=== PATIENT | female | born 2000 | race Caucasian/White ===

== ENCOUNTER → 2024-07-16 | Outpatient (CLI) | payer OTHER | END | disposition home or self-care (01) | LOC: LABWHC1 10:44 | PROVIDERS: ATTEND Obstetrics & Gynecology | DX: N91.2 Amenorrhea, unspecified (principal) | CPT/HCPCS: 36415; 84702 ==

== ENCOUNTER → 2024-07-21 | Outpatient (CLI) | payer OTHER | END | disposition home or self-care (01) | LOC: LABWHC1 09:26 | PROVIDERS: ATTEND Obstetrics & Gynecology | DX: N91.2 Amenorrhea, unspecified (principal) | CPT/HCPCS: 36415; 84702 ==

== ENCOUNTER 2024-11-21 18:15 | Emergency (ER) | payer OTHER ==
[2024-11-21 18:21] VITALS: TEMP 98
--- NOTE | 2024-11-21 18:38 | ED ---
Dizziness HPI - General Chief Complaint: Dizziness Stated Complaint: 23 wk preg, lightheaded,dizzy Time Seen by Provider: 11/21/24 18:34 Source: patient, family (Significant other), RN notes reviewed Mode of arrival: ambulatory Limitations: no limitations - History of Present Illness Initial Comments: 24-year-old female presented to the ER for evaluation of lightheaded nests and dizziness. Patient is approximately 24 weeks gestation. She has not established SCREEN CUTTER AND TRIMMER care at this time. She has been experiencing lightheadedness while at work. She states this will typically last about an hour. She states she feels like she is going to pass out but denies any actual syncope. She denies any chest pain or shortness of breath during these episodes. No known triggers. Patient states today she has been having persistent lightheadedness and dizziness. She does report that this is worse with laying flat and positional changes. She reports mild shortness of breath but denies any chest pain or palpitations. Patient denies any recent fevers, chills, nausea, vomiting, cough, congestion, abdominal pain, urinary complaints, vaginal bleedin g or discharge or peripheral edema. Patient does reports she had ultrasound completed but it has been "a while". Patient reports normal movement. Patient has not taken anything for her complaints at this time. She does report a history of vertigo years ago. No other complaints. - Related Data Previous Rx's Medication Instructions Recorded Meclizine [Antivert] 12.5 mg PO BID #10 tablet 11/21/24 Ondansetron Odt [Zofran Odt] 4 mg PO Q8HR PRN #10 tab 11/21/24 Allergies Allergy/AdvReac Type Severity Reaction Status Date / Time No Known Allergies Allergy Verified 11/21/24 18:21 Review of Systems ROS Statement: Those systems with pertinent positive or pertinent negative responses have been documented in the HPI. ROS Other: All systems not noted in ROS Statement are negative. Past Medical History Past Medical History: No Reported History History of Any Multi-Drug Resistant Organisms: None Reported Past Surgical History: Appendectomy Past Psychological History: No Psychological Hx Reported Smoking Status: Never smoker Past Alcohol Use History: None Reported Past Drug Use History: None Reported General Exam Limitations: no limitations General appearance: alert, in no apparent distress Head exam: Present: atraumatic, normocephalic, normal inspection Eye exam: Present: normal appearance, PERRL, EOMI. Absent: scleral icterus, conjunctival injection, periorbital swelling ENT exam: Present: normal exam, normal oropharynx, mucous membranes moist, TM's normal bilaterally Respiratory exam: Present: normal lung sounds bilaterally. Absent: respiratory distress, wheezes, rales, rhonchi, stridor Cardiovascular Exam: Present: regular rate, normal rhythm, normal heart sounds. Absent: systolic murmur, diastolic murmur, rubs, gallop, clicks GI/Abdominal exam: Present: soft, normal bowel sounds, other (Gravid abdomen. F undus palpated above umbilicus). Absent: distended, tenderness, guarding, rebound, rigid Extremities exam: Present: normal inspection, full ROM, normal capillary refill. Absent: tenderness, pedal edema, joint swelling, calf tenderness Neurological exam: Present: alert, oriented X3, CN II-XII intact Skin exam: Present: warm, dry, intact, normal color. Absent: rash Course Vital Signs 11/21/24 11/21/24 18:18 20:27 Temperature 98.0 F Pulse Rate 87 78 Respiratory 16 18 Rate Blood Pressure 124/85 124/76 O2 Sat by Pulse 99 98 Oximetry - Reevaluation(s) Reevaluation #1: 11/21/24 20:15 Mother-baby completed heart tones ranging from 120 to 140 bpm. EKG Findings - EKG Comments: EKG Findings:: EKG taken at 18: [address] No [address] segment elevations or depressions. No T wave inversions. Ventricular rate 84, SD interval 122, QRS ration 85, QT/QTc 361/402. Medical Decision Making - Medical Decision Making Was pt. sent in by a medical professional or institution (, PA, CARDIOGRAPHER, urgent care, hospital, or [place] health [place] facility...) When possible be specific @ -No Did you speak to anyone other than the patient for history (EMS, parent, family, police, friend...)? What history was obtained from this source @ -Patient's significant other, at bedside, aiding in HPI and past medical h istory. Did you review nursing and triage notes (agree or disagree)? Why? @ -I reviewed and agree with nursing and triage notes Were old charts reviewed (outside hosp., previous admission, EMS record, old EKG, old radiological studies, urgent care reports/EKG's, [place] health [facility] facility records)? Report findings @ -No old charts were reviewed Differential Diagnosis (chest pain, altered mental status, abdominal pain women, abdominal pain men, vaginal bleeding, weakness, fever, dyspnea, syncope, headache, dizziness, GI bleed, back pain, seizure, CVA, palpatations, mental health, musculoskeletal)? @ -[Differential Dizziness:Benign paroxysmal positional Vertigo, Meniere's disease, otitis media, acoustic neuroma, vertebrobasilar insufficiency, cerebellar stroke, encephalitis, hypovolemic, arrhythmia, coronary artery syndrome, anemia, this is not meant to be an all-inclusive list EKG interpreted by me (3pts min.). @ -As above X-rays interpreted by me (1pt min.). @ -None done CT interpreted by me (1pt min.). @ -None done U/S interpreted by me (1pt. min.). @ -None done What testing was considered but not performed or refused? (CT, X-rays, U/S, labs)? Why? @ -None What meds were considered but not given or refused? Why? @ -None Did you discuss the management of the patient with other professionals (professionals i.e. , PA, CARDIOGRAPHER, lab, RT, psych nurse, adoption social worker, data processing systems project planner, teacher, youth corrections officer, telephonic nurse case manager)? Give summary @ -Case discussed with mother baby who came to the emergency department to obtain heart tones. heart tones ranging from 120s to 140sbpm per L&D RN. Was smoking cessation discussed for >3mins.? @ -No Was critical care preformed (if so, how long)? @ -No Were there social determinants of health that impacted care today? How? (Homelessness, low income, unemployed, alcoholism, drug addiction, transportation, low edu. Level, literacy, decrease access to med. care, usp, rehab)? @ -No Was there de-escalation of care discussed even if they declined (Discuss DNR or withdrawal of care, Hospice)? DNR status @ -No What co-morbidities impacted this encounter? (DM, HTN, Smoking, COPD, CAD, Cancer, CVA, ARF, Chemo, Hep., AIDS, mental health diagnosis, sleep apnea, morbid obesity)? @ - Was patient admitted / discharged? Hospital course, mention meds given and route, prescriptions, significant lab abnormalities, going to OR and other pertinent info. @ -Discharged. 24 year old female presenting to the ER for evaluation of dizziness. Patient is G2, P1 approximately 24 weeks gestation. Vitals within acceptable limits. Laboratory studies obtained unimpressive. Urinalysis with small leukocyte esterases, rare bacteria. Sample is contaminated with 14 epithelial cells urine will be sent for culture prior to antibiotic initiation, patient is agreeable. Viral swabs negative. heart tones performed by L&D RN ranging from 120s to 140s bpm. Patient denying any current obstetrical complaints. Patient given IV fluid bolus along with meclizine with improvement of symptoms upon reevaluation. Patient is stable for discharge at this time. Meclizine and Zofran prescribed. Strict return parameters discussed. I advised close follow-up with SCREEN CUTTER AND TRIMMER, referral given. Patient discharged stable condition. Patient verbally expressed understanding agree with care plan. Case discussed with ED attending, Dr. Dominguez. Undiagnosed new problem with uncertain prognosis? @ -No Drug Therapy requiring intensive monitoring for toxicity (Heparin, Nitro, Insulin, Cardizem)? @ -No Were any procedures done? @ -No Diagnosis/symptom? @ -Dizziness Acute, or Chronic, or Acute on Chronic? @ -Acute Uncomplicated (without systemic symptoms) or Complicated (systemic symptoms)? @ -Uncomplicated Side effects of treatment? @ -No Exacerbation, Progression, or Severe Exacerbation? @ -No Poses a threat to life or bodily function? How? (Chest pain, [place], [place], pneumonia, PE, COPD, DKA, ARF, appy, cholecystitis, CVA, Diverticulitis, Homicidal, Suicidal, threat to staff... and all critical care pts) @ -No - Lab Data Result diagrams: 11/21/24 18:52 11/21/24 18:52 Lab Results 11/21/24 11/21/24 11/21/24 Range/Units 18:52 18:52 18:52 WBC 10.6 (3.8-10.6) k/uL RBC 4.20 (3.80-5.40) m/uL Hgb 12.2 (11.4-16.0) gm/dL Hct 38.1 (34.0-46.0) % MCV 90.8 (80.0-100.0) fL MCH 29.1 (25.0-35.0) pg MCHC 32.0 (31.0-37.0) g/dL RDW 13.7 (11.5-15.5) % Plt Count 256 (150-450) k/uL MPV 7.4 Neutrophils % 70 % Lymphocytes % 24 % Monocytes % 3 % Eosinophils % 2 % Basophils % 0 % Neutrophils # 7.4 (1.3-7.7) k/uL Lymphocytes # 2.5 (1.0-4.8) k/uL Monocytes # 0.4 (0-1.0) k/uL Eosinophils # 0.2 (0-0.7) k/uL Basophils # 0.0 (0-0.2) k/uL Sodium 135 L (137-145) mmol/L Potassium 4.1 (3.5-5.1) mmol/L Chloride 103 (98-107) mmol/L Carbon Dioxide 23 (22-30) mmol/L Anion Gap 9 mmol/L BUN 9 (7-17) mg/dL Creatinine 0.45 L (0.52-1.04) mg/dL Est GFR (CKD-EPI)AfAm >90 (>60 ml/min/1.73 sqM) Est GFR (CKD-EPI)NonAf >90 (>60 ml/min/1.73 sqM) Glucose 83 (74-99) mg/dL Calcium 8.3 L (8.4-10.2) mg/dL Total Bilirubin 0.3 (0.2-1.3) mg/dL AST 18 (14-36) U/L ALT 13 (4-34) U/L Alkaline Phosphatase 62 (38-126) U/L Total Protein 6.5 (6.3-8.2) g/dL Albumin 3.3 L (3.5-5.0) g/dL HCG, Quant mIU/mL Urine Color Urine Appearance (Clear) Urine pH (5.0-8.0) Ur Specific [place] (1.001-1.035) Urine Protein (Negative) Urine Glucose (UA) (Negative) Urine Ketones (Negative) Urine Blood (Negative) Urine Nitrite (Negative) Urine Bilirubin (Negative) Urine Urobilinogen (<2.0) mg/dL Ur Leukocyte Esterase (Negative) Urine RBC (0-5) /hpf Urine WBC (0-5) /hpf Ur Squamous Epith Cells (0-4) /hpf Urine Bacteria (None) /hpf Urine Mucus (None) /hpf Influenza Type A (PCR) Not Detected (Not Detectd) Influenza Type B (PCR) Not Detected (Not Detectd) RSV (PCR) Not Detected (Not Detectd) SARS-CoV-2 (PCR) Not Detected (Not Detectd) 11/21/24 11/21/24 Range/Units 18:52 19:05 WBC (3.8-10.6) k/uL RBC (3.80-5.40) m/uL Hgb (11.4-16.0) gm/dL Hct (34.0-46.0) % MCV (80.0-100.0) fL MCH (25.0-35.0) pg MCHC (31.0-37.0) g/dL RDW (11.5-15.5) % Plt Count (150-450) k/uL MPV Neutrophils % % Lymphocytes % % Monocytes % % Eosinophils % % Basophils % % Neutrophils # (1.3-7.7) k/uL Lymphocytes # (1.0-4.8) k/uL Monocytes # (0-1.0) k/uL Eosinophils # (0-0.7) k/uL Basophils # (0-0.2) k/uL Sodium (137-145) mmol/L Potassium (3.5-5.1) mmol/L Chloride (98-107) mmol/L Carbon Dioxide (22-30) mmol/L Anion Gap mmol/L BUN (7-17) mg/dL Creatinine (0.52-1.04) mg/dL Est GFR (CKD-EPI)AfAm (>60 ml/min/1.73 sqM) Est GFR (CKD-EPI)NonAf (>60 ml/min/1.73 sqM) Glucose (74-99) mg/dL Calcium (8.4-10.2) mg/dL Total Bilirubin (0.2-1.3) mg/dL AST (14-36) U/L ALT (4-34) U/L Alkaline Phosphatase (38-126) U/L Total Protein (6.3-8.2) g/dL Albumin (3.5-5.0) g/dL HCG, Quant 32484.5 mIU/mL Urine Color Yellow Urine Appearance Cloudy H (Clear) Urine pH 6.0 (5.0-8.0) Ur Specific [place] 1.023 (1.001-1.035) Urine Protein Trace H (Negative) Urine Glucose (UA) Negative (Negative) Urine Ketones Negative (Negative) Urine Blood Negative (Negative) Urine Nitrite Negative (Negative) Urine Bilirubin Negative (Negative) Urine Urobilinogen <2.0 (<2.0) mg/dL Ur Leukocyte Esterase Small H (Negative) Urine RBC 2 (0-5) /hpf Urine WBC 3 (0-5) /hpf Ur Squamous Epith Cells 14 H (0-4) /hpf Urine Bacteria Rare H (None) /hpf Urine Mucus Rare H (None) /hpf Influenza Type A (PCR) (Not Detectd) Influenza Type B (PCR) (Not Detectd) RSV (PCR) (Not Detectd) SARS-CoV-2 (PCR) (Not Detectd) Disposition Clinical Impression: Dizziness Disposition: HOME SELF-CARE Condition: Stable Instructions (If sedation given, give patient instructions): Dizziness (ED) Additional Instructions: Follow-up closely with SCREEN CUTTER AND TRIMMER. Return to the ER for new or worsening concerns. Prescriptions: Meclizine [Antivert] 12.5 mg PO BID #10 tablet Ondansetron Odt [Zofran Odt] 4 mg PO Q8HR PRN #10 tab PRN Reason: Nausea Is patient prescribed a controlled substance at d/c from ED?: No Referrals: None,Stated [Primary Care Provider] - 1-2 days Chayito Ford DO [Doctor of Osteopathic Medicine] - 1-2 days Time of Disposition: 20:16
[2024-11-21] MEDS: SODIUM CHLORIDE 0.9% 1,000 ML IV STA (18:51)
[2024-11-21] MEDS: MECLIZINE 12.5 MG TAB PO STA (18:52)
[2024-11-21 19:01] LABS: Basophils % (A) 0 %; Eosinophils # (A) 0.2 k/uL (0-0.7); Eosinophils % (A) 2 %; HCT 38.1 % (34.0-46.0); HGB 12.2 gm/dL (11.4-16.0); Lymphocytes # (A) 2.5 k/uL (1.0-4.8); Lymphocytes % (A) 24 %; MCH 29.1 pg (25.0-35.0); MCV 90.8 fL (80.0-100.0); Mean Platelet Volume 7.4; Monocytes # (A) 0.4 k/uL (0-1.0); Monocytes % (A) 3 %; Neutrophils # (A) 7.4 k/uL (1.3-7.7); Neutrophils % (A) 70 %; Platelet Count 256 k/uL (150-450); RDW 13.7 % (11.5-15.5); WBC 10.6 k/uL (3.8-10.6)
[2024-11-21 19:09] LABS: ALT 13 U/L (4-34); AST 18 U/L (14-36); African American GFR (CKD) >90 (>60 ml/min/1.73 sqM); Albumin 3.3 g/dL (3.5-5.0); Alkaline Phosphatase 62 U/L (38-126); Anion Gap 9 mmol/L; Blood Urea Nitrogen 9 mg/dL (7-17); Calcium 8.3 mg/dL (8.4-10.2); Carbon Dioxide 23 mmol/L (22-30); Chloride 103 mmol/L (98-107); Glucose 83 mg/dL (74-99); Non-African American GFR(CKD) >90 (>60 ml/min/1.73 sqM); Potassium 4.1 mmol/L (3.5-5.1); Sodium 135 mmol/L (137-145); Total Bilirubin 0.3 mg/dL (0.2-1.3); Total Protein 6.5 g/dL (6.3-8.2)
[2024-11-21 19:23] LABS: Appearance,Urine Cloudy (Clear); Bacteria,Urine Rare /hpf; Bilirubin,Urine Negative (Negative); Blood,Urine Negative (Negative); Color,Urine Yellow; Glucose,Urine (UA) Negative (Negative); Ketones,Urine Negative (Negative); Leukocyte Esterase,Urine Small (Negative); Mucus,Urine Rare /hpf; Nitrite,Urine Negative (Negative); Protein,Urine Trace (Negative); RBC,Urine 2 /hpf (0-5); Specific Gravity,Urine 1.023 (1.001-1.035); Squamous Epithelial Cell,Urine 14 /hpf (0-4); Urobilinogen,Urine <2.0 mg/dL (<2.0); WBC,Urine 3 /hpf (0-5)
[2024-11-21 19:36] LABS: Influenza A Not Detected (Not Detectd); Influenza B Not Detected (Not Detectd); RSV Not Detected (Not Detectd)
[2024-11-21 20:29] VITALS: BP 124/76; PULSE 78; RESP 18
== END 2024-11-21 20:27 | disposition home or self-care (01) ==
LOC: EC 18:15
DX: O26.892 Other specified pregnancy related conditions, second trimester (principal); R42 Dizziness and giddiness; Z3A.24 24 weeks gestation of pregnancy
CPT/HCPCS: 36415; 80053; 81001; 84702; 85025; 87636; 93005; 96360; 99284

== ENCOUNTER 2024-12-25 00:13 | Outpatient (CLI) | payer OTHER ==
[2024-12-25 01:15] VITALS: BP 123/72; PULSE 93; RESP 16; TEMP 97.8
--- NOTE | 2025-03-01 10:36 | P.MSEPDOC ---
Presenting Problems - Arrival Data Date of Arrival on Unit: 12/25/24 Time of Arrival on Unit: 00:13 Mode of Transport: Ambulatory - Complaint OB-Reason for Admission/Chief Complaint: Pain Comment: Patient presents to triage for right lower abdominal pain. Patient is rating her pain 4/10. Patient states that pain is worse when patient is standing and her pain seems to increase when baby is moving. Medical History - Information : 2 Para: 1 Term: 1 : 0 Abortions: Spontaneous or Elective: 0 Number of Living Children: 1 - Gestational Age Gestational Age by AYAN (wks/days): 28 Weeks and 6 Days Review of Systems - Review of Systems Constitutional: No problems Breast: No problems ENT: No problems Cardiovascular: No problems Respiratory: No problems Gastrointestinal: No problems Genitourinary: No problems Musculoskeletal: No problems Neurological: No problems Skin: No problems Vital Signs - Temperature Temperature: 97.8 F Temperature Source: Temporal Artery Scan - Pulse Pulse Oximetery Pulse Rate: 93 Pulse Assessment Method: Automatic Cuff - Respirations Respiratory Rate: 16 Oxygen Delivery Method: Room Air O2 Sat by Pulse Oximetry: 98 - Blood Pressure Right Arm Blood Pressure: 123/72 Blood Pressure Mean: 89 Blood Pressure Source: Automatic Cuff Medical Screen Scoring - Uterine Contractions Resting: Soft to palpation - Assessment - Baby A Baseline FHR: 130 Heart Rate - NICHD Category: Category I (Normal) NST: Reactive Physician Notification - Physician Notified Physician Notified Date: 12/25/24 Physician Notified Time: 00:39 Physician: Chayito Ford New Order Received: Yes - Notification Comment Comment: call placed to Dr Ford, Report of patient presenting with lower right quadrant pain that resolves when patient sits down from standing, no contractions noted, no bleeding or loss of fluid, + movement, category [address] Ford states pain is most likely round ligament pain, patient may use a heating pad to her back and be discharged home. She can follow up with her doctor or the residents clinic. Maternal Triage Index - Maternal Triage Index Presenting for scheduled procedure w/no complaint: No - Stat/Priority 1 Stat Priority 1: No - Urgent/Priority 2 Urgent Priority 2: No - Prompt/Priority 3 Prompt Priority 3: No - Non-Urgent/Priority 4 Non-Urgent Priority 4: Yes Criteria Met for Priority 4: Patient presents to triage for right lower abdominal pain. Patient is rating her pain 4/10. Patient states that pain is worse when patient is standing and her pain seems to increase when baby is moving. Disposition - Disposition OB Disposition: Discharge to home Discharge Date: 12/25/24 Discharge Time: 00:52 I agree with the RN Medical Screening Exam: Yes Case reviewed; plan agreed upon as documented in EMR&OBIX.: Yes Diagnosis: RIGHT LOWER QUADRANT ABDOMINAL TENDERNESS
== END 2024-12-25 00:52 | disposition home or self-care (01) ==
LOC: FBPOP 00:13
PROVIDERS: ATTEND Obstetrics & Gynecology
DX: Z53.9 Procedure and treatment not carried out, unspecified reason (principal)
CPT/HCPCS: 59025; G0463; 99213

== ENCOUNTER 2025-01-05 14:08 | Emergency (ER) | payer OTHER ==
[2025-01-05 14:59] LABS: Basophils # (A) 0.02 10*3/uL (0.00-0.10); Basophils % (A) 0.2 %; Eosinophils # (A) 0.09 10*3/uL (0.04-0.35); Eosinophils % (A) 0.9 %; HCT 36.7 % (37.2-46.3); HGB 12.5 g/dL (12.0-15.0); Lymphocytes # (A) 1.96 10*3/uL (0.90-5.00); Lymphocytes % (A) 20.1 %; MCH 29.8 pg (27.0-32.0); MCHC 34.1 g/dL (32.0-37.0); MCV 87.6 fL (80.0-97.0); Mean Platelet Volume 10.2 fL (9.5-12.2); Monocytes # (A) 0.51 10*3/uL (0.20-1.00); Monocytes % (A) 5.2 %; Neutrophils # (A) 7.13 10*3/uL (1.80-7.70); Neutrophils % (A) 73.1 %; Platelet Count 267 10*3/uL (140-440); RBC 4.19 10*6/uL (4.10-5.20); RDW 13.4 % (11.5-14.5); WBC 9.76 10*3/uL (4.50-10.00)
--- NOTE | 2025-01-05 15:07 | ED ---
General Adult HPI - General Chief complaint: Arrhythmia/Palpitations Stated complaint: Dizziness, 30 weeks Sent from Urgent Care Time Seen by Provider: 01/05/25 14:28 Source: patient, RN notes reviewed, old records reviewed Mode of arrival: wheelchair - History of Present Illness Initial comments: 24-year-old female G 2P1 presenting with lightheadedness and tachycardia. Patient was noted to be tachycardic around 110 at urgent care and was sent in for evaluation. Patient is approximately 30 weeks she is following with obstetrics and has no complications. She states she has been eating and drinking without significant vomiting. No fever. Her son has a gastrointestinal illness with diarrhea. no Vaginal bleeding. - Related Data Home Medications Medication Instructions Recorded Confirmed Vit No.179/Iron/Folic 1 tab PO DAILY 12/25/24 12/25/24 [ Tablet] Previous Rx's Medication Instructions Recorded Meclizine [Antivert] 12.5 mg PO BID #10 tablet 11/21/24 Ondansetron Odt [Zofran Odt] 4 mg PO Q8HR PRN #10 tab 11/21/24 Allergies Allergy/AdvReac Type Severity Reaction Status Date / Time No Known Allergies Allergy Verified 01/05/25 14:16 Review of Systems ROS Statement: Those systems with pertinent positive or pertinent negative responses have been documented in the HPI. ROS Other: All systems not noted in ROS Statement are negative. Past Medical History Past Medical History: No Reported History History of Any Multi-Drug Resistant Organisms: None Reported Past Surgical History: Appendectomy Past Psychological History: No Psychological Hx Reported Smoking Status: Never smoker General Exam General appearance: alert, in no apparent distress Head exam: Present: atraumatic, normocephalic Eye exam: Present: normal appearance, PERRL ENT exam: Present: normal exam Neck exam: Present: normal inspection. Absent: tenderness, meningismus Respiratory exam: Present: normal lung sounds bilaterally. Absent: respiratory distress Cardiovascular Exam: Present: normal rhythm, tachycardia GI/Abdominal exam: Present: soft, other (Tachycardia). Absent: tenderness Neurological exam: Present: alert, oriented X3 Psychiatric exam: Present: normal affect, normal mood Skin exam: Present: warm Course Vital Signs 01/05/25 14:12 Temperature 98 F Pulse Rate 106 H Respiratory 18 Rate Blood Pressure 135/88 O2 Sat by Pulse 99 Oximetry Medical Decision Making - Medical Decision Making Was pt. sent in by a medical professional or institution (BASILIO Tavarez, VISION SPECIALIST, urgent care, hospital, or prison...) When possible be specific @ -No Did you speak to anyone other than the patient for history (EMS, parent, family, police, friend...)? What history was obtained from this source @ -No Did you review nursing and triage notes (agree or disagree)? Why? @ -I reviewed and agree with nursing and triage notes Were old charts reviewed (outside hosp., previous admission, EMS record, old EKG, old radiological studies, urgent care reports/EKG's, prison records)? Report findings @ -No old charts were reviewed Differential Palpitations Ventricular arrhythmias, atrial arrhythmias, myocardial infarction, anemia, thyrotoxicosis, electrolyte imbalance, hypokalemia, pulmonary embolism, pulmonary disease, drugs, alcohol, anxiety, stress.... This is not meant to be an all-inclusive list. EKG interpreted by me (3pts min.). @Sinus tachycardia rate of 102, OK interval 118, QRS duration 81, QTc [address] segment elevation X-rays interpreted by me (1pt min.). @ -None done CT interpreted by me (1pt min.). @ -None done U/S interpreted by me (1pt. min.). @ -None done What testing was considered but not performed or refused? (CT, X-rays, U/S, labs)? Why? @ -None What meds were considered but not given or refused? Why? @ -None Did you discuss the management of the patient with other professionals (pr ofessionals i.e. BASILIO Tavarez, VISION SPECIALIST, lab, RT, psych nurse, health and social care teacher, chief of field operations, teacher, duty officer, patient case coordinator)? Give summary @ -No Was smoking cessation discussed for >3mins.? @ -No Was critical care preformed (if so, how long)? @ -No Were there social determinants of health that impacted care today? How? (Homelessness, low income, unemployed, alcoholism, drug addiction, transportation, low edu. Level, literacy, decrease access to med. care, [facility], rehab)? @ -No Was there de-escalation of care discussed even if they declined (Discuss DNR or withdrawal of care, Hospice)? DNR status @ -No What co-morbidities impacted this encounter? (DM, HTN, Smoking, COPD, CAD, Cancer, CVA, ARF, Chemo, Hep., AIDS, mental health diagnosis, sleep apnea, morbid obesity)? @ - at 30 weeks gestation Was patient admitted / discharged? Hospital course, mention meds given and route, prescriptions, significant lab abnormalities, going to OR and other pertinent info. @24-year-old currently 30 weeks with an elevated heart rate, heart rate is within normal limits for gestation. heart tones are 140 in the emergency department. I did obtain an EKG CBC CMP in the emergency department w ithout any acute abnormality. Patient well-appearing and is instructed to follow-up with her PILE OPERATOR. Undiagnosed new problem with uncertain prognosis? @ -No Drug Therapy requiring intensive monitoring for toxicity (Heparin, Nitro, Insulin, Cardizem)? @ -No Were any procedures done? @ -No Diagnosis/symptom? @ -[Tachycardia associated with Acute, or Chronic, or Acute on Chronic? @ -Default Uncomplicated (without systemic symptoms) or Complicated (systemic symptoms)? @ -Default Side effects of treatment? @ -No Exacerbation, Progression, or Severe Exacerbation? @ -No Poses a threat to life or bodily function? How? (Chest pain, [place], [place], pneumonia, PE, COPD, DKA, ARF, appy, cholecystitis, CVA, Diverticulitis, Homicidal, Suicidal, threat to staff... and all critical care pts) @ -No - Lab Data Result diagrams: 01/05/25 14:48 01/05/25 14:48 Lab Results 01/05/25 01/05/25 01/05/25 Range/Units 14:48 14:48 15:12 WBC 9.76 (4.50-10.00) 10*3/uL RBC 4.19 (4.10-5.20) 10*6/uL Hgb 12.5 (12.0-15.0) g/dL Hct 36.7 L (37.2-46.3) % MCV 87.6 (80.0-97.0) fL MCH 29.8 (27.0-32.0) pg MCHC 34.1 (32.0-37.0) g/dL Plt Count 267 (140-440) 10*3/uL MPV 10.2 (9.5-12.2) fL Immature Gran % (Auto) 0.5 % Neutrophils % 73.1 % Lymphocytes % 20.1 % Monocytes % 5.2 % Eosinophils % 0.9 % Basophils % 0.2 % Immature Gran # 0.05 H (0.00-0.04) 10*3/uL Neutrophils # 7.13 (1.80-7.70) 10*3/uL Lymphocytes # 1.96 (0.90-5.00) 10*3/uL Monocytes # 0.51 (0.20-1.00) 10*3/uL Eosinophils # 0.09 (0.04-0.35) 10*3/uL Basophils # 0.02 (0.00-0.10) 10*3/uL Sodium 134 L (137-145) mmol/L Potassium 4.0 (3.5-5.1) mmol/L Chloride 102 (98-107) mmol/L Carbon Dioxide 23 (22-30) mmol/L Anion Gap 9 mmol/L BUN 7 (7-17) mg/dL Creatinine 0.38 L (0.52-1.04) mg/dL Est GFR (CKD-EPI)AfAm >90 (>60 ml/min/1.73 sqM) Est GFR (CKD-EPI)NonAf >90 (>60 ml/min/1.73 sqM) Glucose 93 (74-99) mg/dL Calcium 9.2 (8.4-10.2) mg/dL Total Bilirubin 0.2 (0.2-1.3) mg/dL AST 17 (14-36) U/L ALT 13 (4-34) U/L Alkaline Phosphatase 85 (38-126) U/L Total Protein 6.5 (6.3-8.2) g/dL Albumin 3.3 L (3.5-5.0) g/dL Urine Color Yellow Urine Appearance Cloudy H (Clear) Urine pH 6.0 (5.0-8.0) Ur Specific [place] 1.022 (1.001-1.035) Urine Protein Trace H (Negative) Urine Glucose (UA) Negative (Negative) Urine Ketones Negative (Negative) Urine Blood Negative (Negative) Urine Nitrite Negative (Negative) Urine Bilirubin Negative (Negative) Urine Urobilinogen <2.0 (<2.0) mg/dL Ur Leukocyte Esterase Trace H (Negative) Urine RBC 1 (0-5) /hpf Urine WBC 4 (0-5) /hpf Ur Squamous Epith Cells 34 H (0-4) /hpf Urine Bacteria Rare H (None) /hpf Urine Mucus Rare H (None) /hpf Disposition Clinical Impression: Third trimester Disposition: HOME SELF-CARE Condition: Fair Instructions (If sedation given, give patient instructions): Heart Palpitations (ED), (ED) Additional Instructions: Please drink plenty of fluids, please follow-up with your asset accountant. Please return to the emergency department with any new or worsening symptoms. Is patient prescribed a controlled substance at d/c from ED?: No Referrals: None,Stated [Primary Care Provider] - 1-2 days Time of Disposition: 15:53
[2025-01-05 15:09] LABS: ALT 13 U/L (4-34); AST 17 U/L (14-36); African American GFR (CKD) >90 (>60 ml/min/1.73 sqM); Albumin 3.3 g/dL (3.5-5.0); Alkaline Phosphatase 85 U/L (38-126); Anion Gap 9 mmol/L; Blood Urea Nitrogen 7 mg/dL (7-17); Calcium 9.2 mg/dL (8.4-10.2); Carbon Dioxide 23 mmol/L (22-30); Chloride 102 mmol/L (98-107); Glucose 93 mg/dL (74-99); Non-African American GFR(CKD) >90 (>60 ml/min/1.73 sqM); Sodium 134 mmol/L (137-145); Total Bilirubin 0.2 mg/dL (0.2-1.3); Total Protein 6.5 g/dL (6.3-8.2)
[2025-01-05] MEDS: LACTATED RINGERS 1,000 ML IV ONE (15:12)
[2025-01-05 15:37] LABS: Appearance,Urine Cloudy (Clear); Bacteria,Urine Rare /hpf; Bilirubin,Urine Negative (Negative); Blood,Urine Negative (Negative); Color,Urine Yellow; Glucose,Urine (UA) Negative (Negative); Ketones,Urine Negative (Negative); Leukocyte Esterase,Urine Trace (Negative); Mucus,Urine Rare /hpf; Nitrite,Urine Negative (Negative); Protein,Urine Trace (Negative); RBC,Urine 1 /hpf (0-5); Specific Gravity,Urine 1.022 (1.001-1.035); Squamous Epithelial Cell,Urine 34 /hpf (0-4); Urobilinogen,Urine <2.0 mg/dL (<2.0); WBC,Urine 4 /hpf (0-5)
[2025-01-05 16:29] VITALS: BP 120/73; PULSE 96; RESP 18; TEMP 98.6
== END 2025-01-05 16:32 | disposition home or self-care (01) ==
LOC: EC 14:08
DX: O99.891 Other specified diseases and conditions complicating pregnancy (principal); Z3A.30 30 weeks gestation of pregnancy
CPT/HCPCS: 36415; 80053; 81001; 85025; 96360; 99285

== ENCOUNTER 2025-02-28 22:43 | Emergency (ER) | payer OTHER ==
[2025-02-28 22:56] VITALS: RESP 18; TEMP 97.8
[2025-03-01] MEDS: SODIUM CHLORIDE 0.9% 500 ML 500 ML IV STA (02:05)
[2025-03-01 02:16] LABS: Basophils # (A) 0.02 10*3/uL (0.00-0.10); Basophils % (A) 0.2 %; HCT 35.8 % (37.2-46.3); HGB 11.8 g/dL (12.0-15.0); Lymphocytes # (A) 2.19 10*3/uL (0.90-5.00); Lymphocytes % (A) 22.7 %; MCH 28.4 pg (27.0-32.0); MCV 86.3 fL (80.0-97.0); Mean Platelet Volume 10.3 fL (9.5-12.2); Monocytes # (A) 0.58 10*3/uL (0.20-1.00); Neutrophils # (A) 6.74 10*3/uL (1.80-7.70); Neutrophils % (A) 69.8 %; Platelet Count 249 10*3/uL (140-440); RBC 4.15 10*6/uL (4.10-5.20); RDW 13.8 % (11.5-14.5); WBC 9.66 10*3/uL (4.50-10.00)
[2025-03-01 02:51] LABS: ALT 12 U/L (4-34); AST 17 U/L (14-36); African American GFR (CKD) >90 (>60 ml/min/1.73 sqM); Albumin 3.2 g/dL (3.5-5.0); Alkaline Phosphatase 122 U/L (38-126); Anion Gap 8 mmol/L; Blood Urea Nitrogen 13 mg/dL (7-17); Calcium 9.4 mg/dL (8.4-10.2); Carbon Dioxide 23 mmol/L (22-30); Chloride 102 mmol/L (98-107); Glucose 91 mg/dL (74-99); LDH 153 U/L (120-246); Non-African American GFR(CKD) >90 (>60 ml/min/1.73 sqM); Potassium 4.1 mmol/L (3.5-5.1); Sodium 133 mmol/L (137-145); Total Bilirubin 0.1 mg/dL (0.2-1.3); Total Protein 6.3 g/dL (6.3-8.2); Uric Acid 3.7 mg/dL (3.7-7.4)
--- NOTE | 2025-03-01 03:33 | ED ---
Headache HPI - General Chief Complaint: Headache Stated Complaint: Tremours, headache- 38wks preg Time Seen by Provider: 02/28/25 23:28 Mode of arrival: ambulatory - History of Present Illness Initial Comments: This patient is a 24-year-old woman who states that she is approximately 38 weeks , arriving here to have evaluation of headache that started about 5 to 6 hours ago. The patient states that at the time she noticed she was feeling shakey and anxious. She started to develop headache slightly after. She describes moderate, diffuse, dull headache. No neurologic symptoms. No neck pain. No fever associated. MD Complaint: headache -: hour(s) Onset Description: gradual Location: diffuse Severity: moderate Quality: aching Consistency: constant Improves With: nothing Worsens With: none Context: occurred at rest Treatments Prior to Arrival: none - Related Data Home Medications Medication Instructions Recorded Confirmed Vit No.179/Iron/Folic 1 tab PO DAILY 12/25/24 12/25/24 [ Tablet] Previous Rx's Medication Instructions Recorded Meclizine [Antivert] 12.5 mg PO BID #10 tablet 11/21/24 Ondansetron Odt [Zofran Odt] 4 mg PO Q8HR PRN #10 tab 11/21/24 Allergies Allergy/AdvReac Type Severity Reaction Status Date / Time No Known Allergies Allergy Verified 01/05/25 14:16 Review of Systems ROS Statement: Those systems with pertinent positive or pertinent negative responses have been documented in the HPI. ROS Other: All systems not noted in ROS Statement are negative. Constitutional: Denies: fever, chills, weakness Eyes: Denies: eye pain, vision change ENT: Denies: ear pain, hearing loss Respiratory: Denies: cough, dyspnea Cardiovascular: Denies: chest pain, palpitations, edema, syncope Gastrointestinal: Denies: abdominal pain, nausea, vomiting Genitourinary: Denies: dysuria, hematuria, discharge, abnormal menses Musculoskeletal: Denies: back pain Skin: Denies: rash Neurological: Reports: headache. Denies: weakness, numbness, confusion Psychiatric: Reports: anxiety Past Medical History Past Medical History: No Reported History History of Any Multi-Drug Resistant Organisms: None Reported Past Surgical History: Appendectomy Past Psychological History: No Psychological Hx Reported Smoking Status: Never smoker General Exam General appearance: alert, in no apparent distress Head exam: Present: atraumatic, normocephalic Eye exam: Present: normal appearance, PERRL, EOMI. Absent: scleral icterus, conjunctival injection, nystagmus ENT exam: Present: normal oropharynx Neck exam: Present: normal inspection, full ROM. Absent: tenderness, meningismus Respiratory exam: Present: normal lung sounds bilaterally. Absent: respiratory distress, wheezes, rales, rhonchi, stridor, accessory muscle use Cardiovascular Exam: Present: regular rate, normal rhythm, normal heart sounds. Absent: systolic murmur, diastolic murmur, rubs, gallop GI/Abdominal exam: Present: soft, other (Gravid uterus with palpable movement). Absent: distended, tenderness, guarding Extremities exam: Present: normal inspection, normal capillary refill. Absent: pedal edema, calf tenderness Back exam: Present: normal inspection. Absent: tenderness Neurological exam: Present: alert Skin exam: Present: warm, dry, intact, normal color. Absent: rash Course Vital Signs 02/28/25 03/01/25 03/01/25 22:48 00:33 03:48 Temperature 97.8 F Pulse Rate 113 H 98 100 Respiratory 18 18 18 Rate Blood Pressure 145/88 134/90 117/80 O2 Sat by Pulse 98 98 97 Oximetry Medical Decision Making - Medical Decision Making Was pt. sent in by a medical professional or institution ([facility] Tavarez, [employer] OPERATOR, urgent care, hospital, or usp...) When possible be specific @ -[No] Did you speak to anyone other than the patient for history (EMS, parent, family, police, friend...)? What history was obtained from this source @ -[No] Did you review nursing and triage notes (agree or disagree)? Why? @ -[I reviewed and agree with nursing and triage notes] Were old charts reviewed (outside hosp., previous admission, EMS record, old EKG, old radiological studies, urgent care reports/EKG's, usp records)? Report findings @ -[No old charts were reviewed] Differential Diagnosis (chest pain, altered mental status, abdominal pain women, abdominal pain men, vaginal bleeding, weakness, fever, dyspnea, syncope, headache, dizziness, GI bleed, back pain, seizure, CVA, palpatations, mental health, musculoskeletal)? @ -[Differential Headache: Migraine, tension, cluster, carbon monoxide, central venous thrombosis, pension karma temporal arteritis, acute closure glaucoma, intercranial hemorrhage, mastoiditis, sinusitis, head injury, this is not meant to be an all-inclusive list. EKG interpreted by me (3pts min.). @ -[As above] X-rays interpreted by me (1pt min.). @ -[None done] CT interpreted by me (1pt min.). @ -[None done] U/S interpreted by me (1pt. min.). @ -[None done] What testing was considered but not performed or refused? (CT, X-rays, U/S, labs)? Why? @ -[None] What meds were considered but not given or refused? Why? @ -[None] Did you discuss the management of the patient with other professionals (professionals i.e. , PA, [employer] OPERATOR, lab, RT, psych nurse, hospice social worker, car rental clerk, teacher, tourist information officer, bilingual patient support caseworker)? Give summary @ -[No] Was smoking cessation discussed for >3mins.? @ -[No] Was critical care preformed (if so, how long)? @ -[No] Were there social determinants of health that impacted care today? How? (Homelessness, low income, unemployed, alcoholism, drug addiction, transportation, low edu. Level, literacy, decrease access to med. care, fci, rehab)? @ -[No] Was there de-escalation of care discussed even if they declined (Discuss DNR or withdrawal of care, Hospice)? DNR status @ -[No] What co-morbidities impacted this encounter? (DM, HTN, Smoking, COPD, CAD, Cancer, CVA, ARF, Chemo, Hep., AIDS, mental health diagnosis, sleep apnea, morbid obesity)? @ -[None] Was patient admitted / discharged? Hospital course, mention meds given and route, prescriptions, significant lab abnormalities, going to OR and other pertinent info. @ -[Patient is a 24-year-old woman here with headache and anxiety. The patient was found to be mildly hypertensive and therefore the preeclampsia labs were ordered, but the patient's exam and labs are benign. Her blood pressure was rechecked after Tylenol and is completely unremarkable. Her symptoms have improved. She is following up with her health clinician and is scheduled to be induced in approximately 1 week. We discussed appropriate further care and follow-up as well as return parameters Undiagnosed new problem with uncertain prognosis? @ -[No] Drug Therapy requiring intensive monitoring for toxicity (Heparin, Nitro, Insulin, Cardizem)? @ -[No] Were any procedures done? @ -[No] Diagnosis/symptom? @ -[Acute headache Mild hypertension, resolved Acute, or Chronic, or Acute on Chronic? @ -[Acute Uncomplicated (without systemic symptoms) or Complicated (systemic symptoms)? @ -[Uncomplicated Side effects of treatment? @ -[No] Exacerbation, Progression, or Severe Exacerbation? @ -[No] Poses a threat to life or bodily function? How? (Chest pain, [place], [place], pneumonia, PE, COPD, DKA, ARF, appy, cholecystitis, CVA, Diverticulitis, Homicidal, Suicidal, threat to staff... and all critical care pts) @ -[Discussed the importance of following blood pressure during and patient is to follow with her health clinician - Lab Data Result diagrams: 03/01/25 02:07 03/01/25 02:07 Lab Results 03/01/25 03/01/25 Range/Units 02:07 02:07 WBC 9.66 (4.50-10.00) 10*3/uL RBC 4.15 (4.10-5.20) 10*6/uL Hgb 11.8 L (12.0-15.0) g/dL Hct 35.8 L (37.2-46.3) % MCV 86.3 (80.0-97.0) fL MCH 28.4 (27.0-32.0) pg MCHC 33.0 (32.0-37.0) g/dL Plt Count 249 (140-440) 10*3/uL MPV 10.3 (9.5-12.2) fL Immature Gran % (Auto) 0.3 % Neutrophils % 69.8 % Lymphocytes % 22.7 % Monocytes % 6.0 % Eosinophils % 1.0 % Basophils % 0.2 % Immature Gran # 0.03 (0.00-0.04) 10*3/uL Neutrophils # 6.74 (1.80-7.70) 10*3/uL Lymphocytes # 2.19 (0.90-5.00) 10*3/uL Monocytes # 0.58 (0.20-1.00) 10*3/uL Eosinophils # 0.10 (0.04-0.35) 10*3/uL Basophils # 0.02 (0.00-0.10) 10*3/uL Sodium 133 L (137-145) mmol/L Potassium 4.1 (3.5-5.1) mmol/L Chloride 102 (98-107) mmol/L Carbon Dioxide 23 (22-30) mmol/L Anion Gap 8 mmol/L BUN 13 (7-17) mg/dL Creatinine 0.43 L (0.52-1.04) mg/dL Est GFR (CKD-EPI)AfAm >90 (>60 ml/min/1.73 sqM) Est GFR (CKD-EPI)NonAf >90 (>60 ml/min/1.73 sqM) Glucose 91 (74-99) mg/dL Uric Acid 3.7 (3.7-7.4) mg/dL Calcium 9.4 (8.4-10.2) mg/dL Total Bilirubin 0.1 L (0.2-1.3) mg/dL AST 17 (14-36) U/L ALT 12 (4-34) U/L Alkaline Phosphatase 122 (38-126) U/L Lactate Dehydrogenase 153 (120-246) U/L Total Protein 6.3 (6.3-8.2) g/dL Albumin 3.2 L (3.5-5.0) g/dL Disposition Clinical Impression: Headache, Hypertension Disposition: HOME SELF-CARE Condition: Good Instructions (If sedation given, give patient instructions): Acute Headache (ED), Hypertension (ED) Is patient prescribed a controlled substance at d/c from ED?: No Referrals: None,Stated [Primary Care Provider] - 1-2 days
[2025-03-01 03:52] VITALS: BP 117/80; PULSE 100
== END 2025-03-01 03:54 | disposition home or self-care (01) ==
LOC: EC 22:43
DX: O10.913 Unspecified pre-existing hypertension complicating pregnancy, third trimester (principal); Z3A.38 38 weeks gestation of pregnancy
CPT/HCPCS: 36415; 80053; 83615; 84550; 85025; 99284